=== PATIENT | male | born 1990 | race Caucasian/White ===

== ENCOUNTER 2017-09-07 23:01 | Emergency (ER) | payer SELFPAY ==
[~2017-09-07 23:01] MED LIST: ADV100/50 INH; ALB17R INH; ALB6.7R INH; ALBU1.257 IH; ALBU8HFA INH; FLUT1DIS27 IH; METH4TAB57 PO; PRE10 PO; PRO25 PO; PROM25S PR
[2017-09-07 23:03] VITALS: BP 127/78
[2017-09-07] MEDS ORDERED: DIPHTH/TETANUS/ACEL. PERTUSSIS IM ONLY ONE (23:25)
--- NOTE | 2017-09-07 23:25 | ER Report ---
History and Physical Time Seen By MD: 23:09 Hx. of Stated Complaint: PT HAS BEEN DRINKIN TONIGHT. PT HAS INJURY TO RIGHT EYE AND UPPER BODY DUE TO ALTRICATION. HPI/ROS CHIEF COMPLAINT: senior care clearance, intoxication, hand and eye injury HISTORY OF PRESENT ILLNESS: This is a 27 year old male. He is here with [employer] for senior care clearance. Was punching windows, has some cuts to right hand. Has injury to the area of right eye. He denies any pain. Admits to drinking, but no other health problems. Allergies: Coded Allergies: No Known Drug Allergies (Unverified , 09/07/17) Home Meds Reported Medications Salmeterol Xinaf/Fluticasone (ADVAIR 100/50 DISKUS (OR EQUIV)) 1 Ea Inh, 1 EA INH BID 07/06/12 Albuterol Sulfate (Proventil Hfa) 6.7 Gm Aer.w.adap, 2 PUFF INH, 0 Refills two puffs every 6 hours as needed for wheezing 06/13/10 Discontinued Reported Medications Albuterol Sulfate (ALBUTEROL SULFATE) 1.25 Mg/3 Ml Vial.neb, 1.25 MG IH QID Y 07/08/12 Prednisone (PREDNISONE (OR EQUIV)) 10 Mg Tab, 10 MG PO DAILY TAKE 3 TABS DAILY TIMES 2 DAYS THEN 2 TABS DAILY TIMES 2 DAYS THEN 1 TAB DAILY TIMES 4 DAYS THEN 1/2 DAILY TIMES 4 DAYS 07/08/12 Albuterol Sulfate (VENTOLIN HFA 8 GM INH (OR EQUIV)) 8 Gm Inh, 2 PUFF INH QID Y 07/08/12 Reviewed Nurses Notes: Yes Hx Smoking: Yes (1/2 pack to 1 pack per day) Hx Substance Use Disorder: No Hx Alcohol Use: Yes Constitutional Vital Sign - Last 24 Hours 09/07/17 23:03 Temp 99.7 Pulse 108 Resp 14 B/P (MAP) 127/78 Pulse Ox 96 O2 Delivery Room Air Physical Exam General Appearance: The patient is alert, has no immediate need for airway protection, is intoxicated but able to interact. Eyes: Pupils equal and round, scleral injection bilaterally. Has an abrasion and some swelling/contusion lateral to the right eye. Extraocular movements are intact. ENT: Normal oral mucosa. Moist mucous membranes. Tympanic membranes are normal. Neck: Neck is supple and non tender. Respiratory: Chest is non tender, lungs are clear to auscultation. Cardiac: regular rate and rhythm Musculoskeletal: Extremities have full range of motion. Some mild pain associated with cuts in right hand. Skin: Shallow abrasions and lacerations that do not need repair. DIFFERENTIAL DIAGNOSIS: After history and physical exam differential diagnosis was considered for alcohol intoxication and some superficial injuries, cleaned and bandaged, no additional treatment needed. Medical Decision Making ED Course/Re-evaluation ED Course Stable to be discharged with police to senior care. No other treatment needed at this time. Tetanus booster needed. Decision to Disposition Date: Sep 07, 2017 Decision to Disposition Time: 23:22 Depart Departure Latest Vital Signs Vital Signs Date Time Temp Pulse Resp B/P (MAP) Pulse Ox O2 Delivery O2 Flow Rate FiO2 09/07/17 23:03 99.7 108 14 127/78 96 Room Air Impression: Primary Impression: Alcohol intoxication Additional Impressions: Hand laceration Facial contusion Condition: Improved Disposition: [facility] TO [facility]/CORRECTIONAL F Patient Instructions: Alcohol Intoxication (ED), Laceration Without Closure (ED ) Additional Instructions: Wound Care: Wash the wound once a day with soap and water. Dry the wound and apply a small amount of antibiotic ointment with a clean dressing. If the dressing becomes wet or dirty, repeat cleaning and dressing as above. No soaking the wound; no swimming. Pain Control: Use Tylenol or ibuprofen for pain. Using and ice pack can help reduce swelling. Problem Qualifiers Primary Impression: Alcohol intoxication Complication of substance-induced condition: uncomplicated Qualified Codes: F10.920 - Alcohol use, unspecified with intoxication, uncomplicated Additional Impressions: Hand laceration Encounter type: initial encounter Foreign body presence: without foreign body Laterality: right Qualified Codes: S61.411A - Laceration without foreign body of right hand, initial encounter Facial contusion Encounter type: initial encounter Qualified Codes: S00.83XA - Contusion of other part of head, initial encounter RONNIE HERNDON MD Sep 07, 2017 23:25
== END 2017-09-07 23:37 ==
LOC: ER 23:09
DX: S61.411A Laceration without foreign body of right hand, initial encounter (principal); S00.83XA Contusion of other part of head, initial encounter; F10.920 Alcohol use, unspecified with intoxication, uncomplicated; W22.8XXA Striking against or struck by other objects, initial encounter
CPT/HCPCS: 90471; 90715; 99281

== ENCOUNTER 2017-09-20 16:55 | Emergency (ER) | payer SELFPAY ==
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
[2017-09-20 17:49] VITALS: BP 129/78
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
== END 2017-09-20 17:52 | disposition home or self-care (01) ==
LOC: ER 16:58
DX: S62.339A Displaced fracture of neck of unspecified metacarpal bone, initial encounter for closed fracture (principal); W22.8XXA Striking against or struck by other objects, initial encounter
CPT/HCPCS: 99283

== ENCOUNTER → 2018-03-12 | Outpatient (CLI) | payer SELFPAY ==
[~2018-03-12] MED LIST changes: +ALB18R INH; +BUDE10.2 INH
== END ==
LOC: LAB 14:39
PROVIDERS: ATTEND Otolaryngology
DX: J30.9 Allergic rhinitis, unspecified (principal)
CPT/HCPCS: 36415; 86003